=== PATIENT | female | born 1955 | race Caucasian/White ===

== ENCOUNTER 2021-10-11 09:04 | Outpatient (CLI) | payer OTHER, SELFPAY | END 2021-10-11 09:05 | disposition home or self-care (01) | PROVIDERS: PCP Family Medicine; Visit Provider Family Medicine | DX: E03.9 Hypothyroidism, unspecified (principal); R30.0 Dysuria; E11.9 Type 2 diabetes mellitus without complications | CPT/HCPCS: 84443; 87086 ==

== ENCOUNTER 2024-08-20 08:41 | Outpatient (CLI) | payer MEDICARE, SELFPAY | END 2024-08-20 08:42 | disposition home or self-care (01) | LOC: WOUND 08:42 | PROVIDERS: PCP Internal Medicine; Referring Provider Podiatrist; Visit Provider Nurse Practitioner Family | DX: E11.621 Type 2 diabetes mellitus with foot ulcer (principal); E11.42 Type 2 diabetes mellitus with diabetic polyneuropathy; L97.412 Non-pressure chronic ulcer of right heel and midfoot with fat layer exposed; G47.33 Obstructive sleep apnea (adult) (pediatric); E66.01 Morbid (severe) obesity due to excess calories; Z68.43 Body mass index [BMI] 50.0-59.9, adult; Z79.4 Long term (current) use of insulin; Z79.84 Long term (current) use of oral hypoglycemic drugs | CPT/HCPCS: 11042; G0463 ==

== ENCOUNTER 2024-08-27 09:49 | Outpatient (CLI) | payer MEDICAID, OTHER, SELFPAY | END 2024-08-27 09:50 | disposition home or self-care (01) | LOC: WOUND 09:49 | PROVIDERS: PCP Internal Medicine; Visit Provider Nurse Practitioner Family | DX: E11.621 Type 2 diabetes mellitus with foot ulcer (principal); E11.42 Type 2 diabetes mellitus with diabetic polyneuropathy; L97.412 Non-pressure chronic ulcer of right heel and midfoot with fat layer exposed; Z79.4 Long term (current) use of insulin | CPT/HCPCS: 11042 ==

== ENCOUNTER 2024-09-03 08:55 | Outpatient (CLI) | payer MEDICARE, SELFPAY | END 2024-09-03 08:56 | disposition home or self-care (01) | LOC: WOUND 08:55 | PROVIDERS: PCP Internal Medicine; Visit Provider Nurse Practitioner Family | DX: E11.621 Type 2 diabetes mellitus with foot ulcer (principal); E11.42 Type 2 diabetes mellitus with diabetic polyneuropathy; L97.412 Non-pressure chronic ulcer of right heel and midfoot with fat layer exposed; Z79.4 Long term (current) use of insulin; I70.203 Unspecified atherosclerosis of native arteries of extremities, bilateral legs | CPT/HCPCS: 11042; 93926 ==

== ENCOUNTER 2024-09-03 10:54 | Outpatient (CLI) | payer MEDICARE, SELFPAY ==
--- NOTE | 2024-09-03 11:30 | CRLHL7_ITS ---
For Patients: As a result of the Century Cures Act, medical imaging exams and procedure reports are released immediately into your electronic medical record. You may view this report before your referring provider. If you have questions, please contact your health care provider. DUPLEX ARTERIAL ULTRASOUND BILATERAL LOWER EXTREMITIES CLINICAL HISTORY Bilateral lower extremity wounds, arterial insufficiency. COMPARISON None. TECHNIQUE The left lower extremity arteries were examined per exam specific protocol with orantes-scale ultrasound, color-flow and Doppler spectral analysis. Peak systolic velocities (PSV), Doppler waveform quality and velocity ratios, if applicable, were documented at sites per exam specific protocol. FINDINGS Examination was markedly limited due to patient body habitus. Multiphasic waveforms seen throughout both lower extremity arterial systems with questionable monophasic waveforms in the bilateral pedal arteries. No significant lower extremity edema with limited evaluation of the tibial arteries. Elevated velocities noted in the proximal right femoral artery measuring up to 208 cm/sec as well as at the proximal left femoral artery measuring 200 cm/s which may be indicative of underlying hemodynamic significant stenosis in these regions. PSV WAVEFORM RIGHT cm/sec T-B-M MINER PLACER 154.5 Triphasic DFA 143.2 Biphasic? FA Prox. 207.7 Triphasic FA Mid 139.3 Triphasic FA Dist. 85.8 Biphasic Pop A. 108.4 B9-Triphasic Ana M A. 52.7 Jennings [employer]ARIAN 100.2 Jennings ERMIAS 38.5 Jennings DPA 39.9 Jennings? PSV WAVEFORM LEF T cm/sec T-B-M MINER PLACER 194.3 Triphasic DFA 186.4 Triphasic FA Prox. 199.9 Triphasic FA Mid 144.7 Triphasic FA Dist. 103.1 Biphasic Pop A. 184.9 Bi-Triphasic Ana M A. 83.8 Jennings [employer]M LIBRARIAN 58.1 Jennings ERMIAS 63.9 Jennings DPA 115.4 Tri-Biphasic? IMPRESSION 1. Predominantly multiphasic waveforms of both lower extremity arterial systems with monophasic waveforms in the pedal arteries. 2. Abnormally elevated velocities in bilateral proximal superficial femoral arteries measuring 208 cm on the right and 200 cm on the left. This may be indicative of underlying hemodynamically significant stenoses in these regions. Pedro Pablo Baig M.D. [email or web address] ISAIAH/federico / DW/Dictated by: Pedro Pablo Baig MD @ 09/06/2024 4:55:00 PM (Electronically Signed)
== END 2024-09-03 10:55 | disposition home or self-care (01) ==
LOC: US 10:56
PROVIDERS: PCP Internal Medicine; Visit Provider Nurse Practitioner Family
DX: L97.412 Non-pressure chronic ulcer of right heel and midfoot with fat layer exposed (principal); I70.203 Unspecified atherosclerosis of native arteries of extremities, bilateral legs; E11.621 Type 2 diabetes mellitus with foot ulcer; E11.42 Type 2 diabetes mellitus with diabetic polyneuropathy
CPT/HCPCS: 93926

== ENCOUNTER 2024-09-10 08:53 | Outpatient (CLI) | payer MEDICARE, SELFPAY | END 2024-09-10 08:54 | disposition home or self-care (01) | LOC: WOUND 08:53 | PROVIDERS: PCP Internal Medicine; Visit Provider Nurse Practitioner Family | DX: E11.621 Type 2 diabetes mellitus with foot ulcer (principal); E11.42 Type 2 diabetes mellitus with diabetic polyneuropathy; L97.412 Non-pressure chronic ulcer of right heel and midfoot with fat layer exposed; Z79.4 Long term (current) use of insulin | CPT/HCPCS: 97597 ==

== ENCOUNTER 2024-09-17 08:54 | Outpatient (CLI) | payer MEDICARE, SELFPAY | END 2024-09-17 08:55 | disposition home or self-care (01) | LOC: WOUND 08:54 | PROVIDERS: PCP Internal Medicine; Visit Provider Nurse Practitioner Family | DX: E11.621 Type 2 diabetes mellitus with foot ulcer (principal); E11.42 Type 2 diabetes mellitus with diabetic polyneuropathy; L97.412 Non-pressure chronic ulcer of right heel and midfoot with fat layer exposed; Z79.4 Long term (current) use of insulin | CPT/HCPCS: 11042 ==

== ENCOUNTER 2024-09-24 08:35 | Outpatient (CLI) | payer MEDICARE, SELFPAY | END 2024-09-24 08:36 | disposition home or self-care (01) | LOC: WOUND 08:35 | PROVIDERS: PCP Internal Medicine; Visit Provider Nurse Practitioner Family | DX: E11.621 Type 2 diabetes mellitus with foot ulcer (principal); E11.42 Type 2 diabetes mellitus with diabetic polyneuropathy; L97.412 Non-pressure chronic ulcer of right heel and midfoot with fat layer exposed; Z79.4 Long term (current) use of insulin | CPT/HCPCS: 11042 ==

== ENCOUNTER 2024-10-01 08:48 | Outpatient (CLI) | payer MEDICARE, OTHER, SELFPAY | END 2024-10-01 08:49 | disposition home or self-care (01) | LOC: WOUND 08:48 | PROVIDERS: PCP Internal Medicine; Visit Provider Nurse Practitioner Family | DX: E11.621 Type 2 diabetes mellitus with foot ulcer (principal); E11.42 Type 2 diabetes mellitus with diabetic polyneuropathy; L97.412 Non-pressure chronic ulcer of right heel and midfoot with fat layer exposed; Z79.4 Long term (current) use of insulin | CPT/HCPCS: 97597 ==

== ENCOUNTER 2024-10-15 08:44 | Outpatient (CLI) | payer MEDICARE, OTHER, SELFPAY | END 2024-10-15 08:45 | disposition home or self-care (01) | LOC: WOUND 08:44 | PROVIDERS: PCP Internal Medicine; Visit Provider Nurse Practitioner Family | DX: E11.621 Type 2 diabetes mellitus with foot ulcer (principal); E11.42 Type 2 diabetes mellitus with diabetic polyneuropathy; L97.412 Non-pressure chronic ulcer of right heel and midfoot with fat layer exposed; G47.33 Obstructive sleep apnea (adult) (pediatric); E66.01 Morbid (severe) obesity due to excess calories; Z68.43 Body mass index [BMI] 50.0-59.9, adult; Z79.4 Long term (current) use of insulin | CPT/HCPCS: 11042 ==

== ENCOUNTER 2024-10-22 08:40 | Outpatient (CLI) | payer MEDICARE, OTHER, SELFPAY | END 2024-10-22 08:41 | disposition home or self-care (01) | LOC: WOUND 08:40 | PROVIDERS: PCP Internal Medicine; Visit Provider Nurse Practitioner Family | DX: E11.621 Type 2 diabetes mellitus with foot ulcer (principal); E11.42 Type 2 diabetes mellitus with diabetic polyneuropathy; L97.412 Non-pressure chronic ulcer of right heel and midfoot with fat layer exposed; Z79.4 Long term (current) use of insulin; G47.33 Obstructive sleep apnea (adult) (pediatric); E66.01 Morbid (severe) obesity due to excess calories; Z68.43 Body mass index [BMI] 50.0-59.9, adult | CPT/HCPCS: 11042 ==

== ENCOUNTER 2024-10-29 08:28 | Outpatient (CLI) | payer MEDICARE, OTHER, SELFPAY | END 2024-10-29 08:29 | disposition home or self-care (01) | LOC: WOUND 08:28 | PROVIDERS: PCP Internal Medicine; Visit Provider Nurse Practitioner Family | DX: E11.621 Type 2 diabetes mellitus with foot ulcer (principal); E11.42 Type 2 diabetes mellitus with diabetic polyneuropathy; I89.0 Lymphedema, not elsewhere classified; L97.412 Non-pressure chronic ulcer of right heel and midfoot with fat layer exposed; G47.33 Obstructive sleep apnea (adult) (pediatric); Z79.4 Long term (current) use of insulin | CPT/HCPCS: 11042; G0463 ==

== ENCOUNTER 2024-11-05 08:46 | Outpatient (CLI) | payer MEDICARE, OTHER, SELFPAY | END 2024-11-05 08:47 | disposition home or self-care (01) | LOC: WOUND 08:46 | PROVIDERS: PCP Internal Medicine; Visit Provider Nurse Practitioner Family | DX: E11.621 Type 2 diabetes mellitus with foot ulcer (principal); E11.42 Type 2 diabetes mellitus with diabetic polyneuropathy; I89.0 Lymphedema, not elsewhere classified; L97.412 Non-pressure chronic ulcer of right heel and midfoot with fat layer exposed; Z79.4 Long term (current) use of insulin; M25.374 Other instability, right foot | CPT/HCPCS: 11042; G0463 ==

== ENCOUNTER 2024-11-12 08:52 | Outpatient (CLI) | payer MEDICARE, OTHER, SELFPAY | END 2024-11-12 08:53 | disposition home or self-care (01) | LOC: WOUND 08:52 | PROVIDERS: PCP Internal Medicine; Visit Provider Nurse Practitioner Family | DX: E11.621 Type 2 diabetes mellitus with foot ulcer (principal); E11.42 Type 2 diabetes mellitus with diabetic polyneuropathy; L97.412 Non-pressure chronic ulcer of right heel and midfoot with fat layer exposed; I89.0 Lymphedema, not elsewhere classified; M25.374 Other instability, right foot; Z79.4 Long term (current) use of insulin | CPT/HCPCS: 11042 ==

== ENCOUNTER 2024-11-19 08:50 | Outpatient (CLI) | payer MEDICARE, OTHER, SELFPAY | END 2024-11-19 08:51 | disposition home or self-care (01) | LOC: WOUND 08:50 | PROVIDERS: PCP Internal Medicine; Visit Provider Nurse Practitioner Family | DX: E11.621 Type 2 diabetes mellitus with foot ulcer (principal); E11.42 Type 2 diabetes mellitus with diabetic polyneuropathy; L97.412 Non-pressure chronic ulcer of right heel and midfoot with fat layer exposed; I89.0 Lymphedema, not elsewhere classified; M25.374 Other instability, right foot; Z79.4 Long term (current) use of insulin | CPT/HCPCS: 11042 ==

== ENCOUNTER 2024-12-10 08:45 | Outpatient (CLI) | payer MEDICARE, OTHER, SELFPAY | END 2024-12-10 08:46 | disposition home or self-care (01) | LOC: WOUND 08:46 | PROVIDERS: PCP Internal Medicine; Visit Provider Nurse Practitioner Family | DX: E11.621 Type 2 diabetes mellitus with foot ulcer (principal); L97.412 Non-pressure chronic ulcer of right heel and midfoot with fat layer exposed; I89.0 Lymphedema, not elsewhere classified; Z79.4 Long term (current) use of insulin | CPT/HCPCS: 97597 ==

== ENCOUNTER 2024-12-31 08:39 | Outpatient (CLI) | payer MEDICARE, OTHER, SELFPAY | END 2024-12-31 08:40 | disposition home or self-care (01) | LOC: WOUND 08:39 | PROVIDERS: PCP Internal Medicine; Visit Provider Nurse Practitioner Family | DX: E11.42 Type 2 diabetes mellitus with diabetic polyneuropathy (principal); I89.0 Lymphedema, not elsewhere classified; Z86.31 Personal history of diabetic foot ulcer; Z79.4 Long term (current) use of insulin | CPT/HCPCS: G0463 ==

== ENCOUNTER 2025-01-16 10:23 | Outpatient (CLI) | payer MEDICARE, SELFPAY | END 2025-01-16 10:24 | disposition home or self-care (01) | LOC: WOUND 10:23 | PROVIDERS: PCP Internal Medicine; Visit Provider Nurse Practitioner Family | DX: E11.621 Type 2 diabetes mellitus with foot ulcer (principal); E11.42 Type 2 diabetes mellitus with diabetic polyneuropathy; I89.0 Lymphedema, not elsewhere classified; L97.412 Non-pressure chronic ulcer of right heel and midfoot with fat layer exposed; E66.01 Morbid (severe) obesity due to excess calories; Z68.43 Body mass index [BMI] 50.0-59.9, adult; Z79.4 Long term (current) use of insulin | CPT/HCPCS: 97597 ==